=== PATIENT | female | born 1995 | race Caucasian/White ===

== ENCOUNTER 2018-12-07 21:42 | Emergency (ER) | payer MEDICAID ==
[~2018-12-07] VITALS: Ht 160 cm; Wt 59.4 kg
[2018-12-07 21:43] VITALS: BP 139/84; Ht 160 cm; Wt 59.4 kg
== END 2018-12-07 23:13 | disposition home or self-care (01) ==
LOC: ED 21:42
DX: S60.041A Contusion of right ring finger without damage to nail, initial encounter (principal); W22.8XXA Striking against or struck by other objects, initial encounter; Y93.89 Activity, other specified; Y92.89 Other specified places as the place of occurrence of the external cause; Y99.8 Other external cause status